=== PATIENT | female | born 2000 | race Hispanic/Latino ===

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

== ENCOUNTER 2022-03-06 01:58 | Emergency (ER) | payer OTHER ==
[2022-03-06] MEDS ORDERED: Ondansetron ODT 4 MG TAB ONE (02:46)
== END 2022-03-06 03:38 | disposition home or self-care (01) ==
LOC: MADERS 01:58
DX: O21.2 Late vomiting of pregnancy (principal); Z3A.32 32 weeks gestation of pregnancy
CPT/HCPCS: 99283; Q0162

== ENCOUNTER 2022-03-25 09:21 | Emergency (ER) | payer OTHER ==
[2022-03-25 09:47] LABS: Bilirubin Negative (Negative); Blood, Urine Negative (Negative); Clarity Clear (Clear); Glucose, Urine (Dipstick) 250 mg/dL (Negative); Ketone, Urine Negative (Negative); Leukocyte Small (Negative); Nitrite Negative (Negative); Protein, Urine (Dipstick) Trace mg/dL (Neg-Trace); Urobilinogen 0.2 mg/dL (Less than 2)
[2022-03-25 09:49] LABS: Specific Gravity, Urine 1.026 (1.002-1.036)
[2022-03-25 09:53] LABS: RBC/HPF 0-3 HPF (0-3)
[2022-03-25 09:54] LABS: Bacteria/HPF 2+ HPF (None Seen)
[2022-03-25] MEDS ORDERED: Cephalexin 500 MG CAP ONE (10:15)
== END 2022-03-25 10:20 | disposition home or self-care (01) ==
LOC: MADERS 09:21
DX: O23.43 Unspecified infection of urinary tract in pregnancy, third trimester (principal); N39.0 Urinary tract infection, site not specified; Z3A.35 35 weeks gestation of pregnancy
CPT/HCPCS: 81003; 81015; 87086

== ENCOUNTER 2022-09-19 18:11 | Emergency (ER) | payer OTHER | END 2022-09-19 20:36 | disposition home or self-care (01) | LOC: MADERS 18:11 | DX: J06.9 Acute upper respiratory infection, unspecified (principal) | CPT/HCPCS: 87081; 87430; 99283 ==

== ENCOUNTER 2023-02-17 18:23 | Emergency (ER) | payer OTHER | END 2023-02-17 18:58 | disposition home or self-care (01) | LOC: MADERS 18:23 | DX: O99.512 Diseases of the respiratory system complicating pregnancy, second trimester (principal); J06.9 Acute upper respiratory infection, unspecified; Z3A.20 20 weeks gestation of pregnancy | CPT/HCPCS: 99283 ==

== ENCOUNTER 2023-05-03 22:17 | Emergency (ER) | payer OTHER ==
[2023-05-03] MEDS ORDERED: Ondansetron ODT 4 MG TAB ONE (22:26)
[2023-05-03 22:56] LABS: Bilirubin Negative (Negative); Blood, Urine Negative (Negative); Clarity Clear (Clear); Glucose, Urine (Dipstick) 500 mg/dL (Negative); Ketone, Urine Trace mg/dL (Negative); Leukocyte Negative (Negative); Nitrite Negative (Negative); Pregnancy Test - Urine (BHCG) POSITIVE (Negative); Pregu Control Background? CLEAR/WHITE (CLR/WHITE); Pregu Control Bar Appear? YES (CONTROL BAR); Protein, Urine (Dipstick) Negative (Neg-Trace); Specific Gravity 1.025 (1.002-1.036); Specific Gravity, Urine 1.025 (1.005-1.030); Urobilinogen 0.2 mg/dL (Less than 2)
[2023-05-03 23:10] LABS: RBC/HPF 0-3 HPF (0-3)
[2023-05-03 23:11] LABS: Bacteria/HPF Rare-Few HPF (None Seen); CAUTI Indications for Culture Pregnancy
[2023-05-03 23:13] LABS: Urine Culture Reflex Yes Yes
[2023-05-03 23:14] LABS: #Basophils 0.1 thou/uL (0.0-0.2); #Lymphocytes 1.7 thou/uL (1.20-3.40); #Monocytes 0.6 thou/uL (0.11-0.59); #Neutrophils 6.1 thou/uL (1.40-6.50); %Basophils 0.9 % (0.0-1.0); %Eosinophils 0.5 % (0.0-10.0); %Lymphocytes 20.3 % (28.0-48.0); %Monocytes 6.7 % (0.0-4.0); %Neutrophils 71.6 % (31.0-61.0); Hematocrit 29.4 % (36.0-47.0); Hemoglobin 8.5 g/dL (12.0-16.0); Mean Corpuscular HGB CONC 28.8 g/dL (32.0-36.0); Mean Corpuscular Hemoglobin 17.4 pg (25.0-35.0); Mean Corpuscular Volume 60.4 fl (78.0-98.0); Mean Platelet Volume 8.6 fL (7.4-10.4); Platelet Count 240 10x3/uL (130-400); RBC Distribution Width 15.6 % (11.5-14.5); Red Blood Cell (RBC) Count 4.87 mill/uL (4.00-5.20); White Blood Cell (WBC) Count 8.6 10x3/uL (4.8-10.8)
[2023-05-03 23:19] LABS: SARS-CoV-2 E Target Negative; SARS-CoV-2 N2 Target Negative; SARS-CoV-2 NAA Rapid Test Not Detected (NotDetected); SARS-CoV-2 RdRP gene Negative
[2023-05-03 23:20] LABS: ALT (SGPT) 13 U/L (8-55); AST (SGOT) 17 U/L (5-34); Albumin 3.8 g/dL (3.5-5.0); Alkaline Phosphatase 100 U/L (40-100); Anion Gap 16 mmol/L (10-20); Anisocytosis MODERATE=16-30 cells (100X) (0-5/hpf); BUN (Urea Nitrogen) 10 mg/dL (7.0-18.7); Bilirubin, Total 0.4 mg/dL (0.2-1.2); Calc. Creatinine Clearance 0 mL/min (70-130); Calcium 9.3 mg/dL (7.8-10.44); Carbon Dioxide 21 mmol/L (22-29); Chloride 105 mmol/L (98-107); Estimated GFR 131; Globulin 3.6 g/dL (2.4-3.5); Glucose 96 mg/dL (70-105); Potassium 3.8 mmol/L (3.5-5.1); Protein, Total 7.4 g/dL (6.0-8.3); Sodium 138 mmol/L (136-145); Uric Acid Less than 2.0 mg/dL (2.6-6.0)
[2023-05-03 23:21] LABS: Hypochromia MODERATE=16-30 cells (100X) (0-5/hpf); Microcytosis MODERATE=15-30 cells (100X) (0-5/hpf); Platelet Adequacy Comment Appears Adequate
[2023-05-03 23:22] LABS: MDiff Complete? YES
== END 2023-05-03 23:34 | disposition home or self-care (01) ==
LOC: MADERS 22:17
DX: O21.2 Late vomiting of pregnancy (principal); O98.513 Other viral diseases complicating pregnancy, third trimester; B34.9 Viral infection, unspecified; O99.891 Other specified diseases and conditions complicating pregnancy; E86.0 Dehydration; Z3A.31 31 weeks gestation of pregnancy
CPT/HCPCS: 80053; 81001; 81025; 84550; 85025; 87081; 87086; 87430; 87804; 87807; 96360; Q0162; U0002